=== PATIENT | female | born 1990 | race Caucasian/White ===

== ENCOUNTER 2018-01-25 20:06 | Emergency (ER) | payer MEDICAID ==
[2018-01-25 20:30] VITALS: RESP 18
[2018-01-25] MEDS ORDERED: KETOROLAC 30 MG/ML 1 ML VIAL IVP STA (20:56)
[2018-01-25] MEDS ORDERED: METOCLOPRAMIDE 5 MG/ML 2 ML VIAL IVP STA (20:56)
[2018-01-25] MEDS ORDERED: diphenhydrAMINE 50 MG/ML 1 ML VIAL IVP STA (20:56)
[2018-01-25] MEDS ORDERED: SODIUM CHLORIDE 0.9% 1,000 ML IV STA (20:56)
--- NOTE | 2018-01-25 20:59 | ED ---
Headache HPI - General Chief Complaint: Headache Stated Complaint: Migraine Time Seen by Provider: 01/25/18 20:49 Source: patient, RN notes reviewed Mode of arrival: ambulatory Limitations: no limitations - History of Present Illness Initial Comments: This is a 27-year-old female who presents to the emergency department with chief complaint of migraine. Patient states that she has had migraines for the past 13 years and that it is always located in her temples. Patient states that she developed a right-sided migraine at 9 AM this morning. This is her second migraine this week. She states that her migraine feels different from her normal. She states that it is located behind the eye which is unusual for her. She describes it as sharp and constant. She also states that she feels her vision is blurred. She did not take any medication today but did try peppermint oil. She admits to associated nausea and vomiting. She denies any recent falls, injuries or trauma. Denies fevers or chills, chest pain or shortness breath, abdominal pain, diarrhea or constipation, dysuria or hematuria , dizziness. - Related Data Home Medications Medication Instructions Recorded Confirmed DULoxetine HCL [Cymbalta] 20 mg PO DAILY 01/25/18 01/25/18 QUEtiapine [SEROquel] 50 mg PO HS 01/25/18 01/25/18 SUMAtriptan SUCCINATE [Imitrex] 100 mg PO DAILY PRN 01/25/18 01/25/18 lamoTRIgine [LaMICtal] 75 mg PO HS 01/25/18 01/25/18 Allergies Allergy/AdvReac Type Severity Reaction Status Date / Time frovatriptan [From Frova] Allergy Unknown Verified 01/25/18 20:37 indomethacin [From Indocin] Allergy Rash/Hives Verified 01/25/18 20:37 sulfamethoxazole Allergy Abdominal Verified 01/25/18 20:37 [From Bactrim] Pain trimethoprim [From Bactrim] Allergy Abdominal Verified 01/25/18 20:37 Pain Review of Systems ROS Statement: Those systems with pertinent positive or pertinent negative responses have been documented in the HPI. ROS Other: All systems not noted in ROS Statement are negative. Past Medical History Additional Past Medical History / Comment(s): migraines, pancreatitis, tmj History of Any Multi-Drug Resistant Organisms: None Reported Past Surgical History: Ear Surgery Additional Past Surgical History / Comment(s): tongue surgery Past Psychological History: Anxiety, Depression Smoking Status: Never smoker Past Alcohol Use History: Occasional Past Drug Use History: None Reported General Exam - General Exam Comments Initial Comments: General: Awake and alert, well-developed; in no apparent distress. HEENT: Head atraumatic, normocephalic. Pupils are equal, round and reactive to light. Extraocular movements intact. Oropharynx moist without erythema or exudate. Neck: Supple. Normal ROM. Cardiovascular: Regular rate and rhythm. No murmurs, rubs or gallops. Chest symmetrical. Respiratory: Lungs clear to auscultation bilaterally. No wheezes, rales or rhonchi. Normal respiratory effort with no use of accessory muscles. Musculoskeletal: Normal ROM, no tenderness bilateral upper and lower extremities. Ambulating normally. Skin: [place], warm and dry without rashes or lesions. Neurological: Alert and oriented x3. CN II-XII grossly intact. Speech is fluent and answers are appropriate. No focal neuro deficits. Psychiatric: Normal mood and affect. No overt signs of depression or anxiety noted. Limitations: no limitations Course Vital Signs 01/25/18 01/25/18 20:29 22:50 Temperature 98.5 F 98.6 F Pulse Rate 86 68 Respiratory 18 18 Rate Blood Pressure 123/84 121/79 O2 Sat by Pulse 98 97 Oximetry Medical Decision Making - Medical Decision Making This is a 27-year-old female with history of migraine who presents to the emergency department with chief complaint of migraine. Patient stated that her migraine started this morning. She states that it feels different from her normal migraines as they're usually located in the sikh and this is located behind her eye. Computed tomography scan was obtained and revealed no acute abnormalities. Patient given headache cocktail and fluids while in the emergency department. Symptoms have improved. Vital signs have been stable and she is in no acute distress. She'll be discharged home at this time. Return parameters were discussed. Patient is in agreement with plan and voices understanding. All questions were answered. - Radiology Data Radiology results: report reviewed CT brain without contrast conclusion: Normal head computed tomography scan. No evidence of orbital mass. Disposition Clinical Impression: Migraine Disposition: HOME SELF-CARE Condition: Good Instructions: Migraine Headache (ED) Additional Instructions: Please follow up with primary care provider within 1-2 days. Return to emergency department if symptoms should worsen or any concerns arise. Is patient prescribed a controlled substance at d/c from ED?: No Referrals: Brianna Posada DO [Primary Care Provider] - 1-2 days Time of Disposition: 00:07
--- NOTE | 2018-01-25 21:49 | CT ---
EXAMINATION TYPE: CT brain wo con DATE OF EXAM: 01/25/2018 COMPARISON: NONE HISTORY: Migrane, pressure behind right eye CT DLP: 951.1 mGycm. Automated Exposure Control for Dose Reduction was Utilized. TECHNIQUE: CT scan of the head is performed without contrast. FINDINGS: Ventricles and sulci appear normal. There is no mass effect nor midline shift. There is n o sign of intracranial hemorrhage. The calvarium is intact. CONCLUSION: Normal head CT scan. No evidence of orbital mass.
[2018-01-25] MEDS ORDERED: ORPHENADRINE 30 MG/ML 2 ML VIAL IVP STA (21:55)
[2018-01-25] MEDS ORDERED: methylPREDNISolone SOD SUCCI 125 MG/2 ML VIAL IV STA (21:56)
[2018-01-25] MEDS ORDERED: SUMAtriptan SUCCINATE 6 MG/0.5 ML VIAL SQ STA (22:57)
[2018-01-26 00:20] VITALS: BP 119/79; PULSE 72; TEMP 98.7
== END 2018-01-26 00:20 | disposition home or self-care (01) ==
LOC: EC 20:06
DX: G43.909 Migraine, unspecified, not intractable, without status migrainosus (principal); F32.9 Major depressive disorder, single episode, unspecified; F41.9 Anxiety disorder, unspecified; Z79.899 Other long term (current) drug therapy; Z88.2 Allergy status to sulfonamides; Z88.8 Allergy status to other drugs, medicaments and biological substances
CPT/HCPCS: 70450; 96361; 96372; 96374; 96375; 99284

== ENCOUNTER → 2018-06-01 | Outpatient (CLI) | payer MEDICAID ==
[2018-06-01 10:36] LABS: Cholesterol 223 mg/dL (<200); Glucose 90 mg/dL (74-99); HDL Cholesterol 75 mg/dL (40-60); LDL Cholesterol,Calculated 122 mg/dL (0-99); Triglycerides 132 mg/dL (<150)
== END | disposition home or self-care (01) ==
LOC: LABWHC1 09:29
PROVIDERS: ATTEND Family Medicine
DX: Z00.00 Encounter for general adult medical examination without abnormal findings (principal)
CPT/HCPCS: 36415; 80061; 82947

== ENCOUNTER → 2018-08-21 | Outpatient (CLI) | payer MEDICAID ==
[2018-08-21 18:51] LABS: T4, Free (Free Thyroxine) 1.2 ng/dL (0.80-1.80)
[2018-08-21 19:00] LABS: DHEA Sulfate 215.8 ug/dL (26.0-430.0); Progesterone 12.2 ng/mL
[2018-08-21 19:11] LABS: Thyroid Peroxidase Antibodies 453.4 U/mL (0.0-60.0)
== END | disposition home or self-care (01) ==
LOC: LABWHC1 12:25
PROVIDERS: ATTEND Obstetrics & Gynecology
DX: G47.00 Insomnia, unspecified (principal); G43.909 Migraine, unspecified, not intractable, without status migrainosus; R94.6 Abnormal results of thyroid function studies
CPT/HCPCS: 36415; 82627; 84144; 84403; 84439; 84443; 86376

== ENCOUNTER → 2018-09-18 | Outpatient (CLI) | payer MEDICAID ==
--- NOTE | 2018-09-18 15:31 | US ---
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 Heterogeneous normal-sized thyroid without discrete nodules. IMPRESSION: As above
== END | disposition home or self-care (01) ==
LOC: RADUSWWP 14:46
PROVIDERS: ATTEND Obstetrics & Gynecology
DX: E06.3 Autoimmune thyroiditis (principal)
CPT/HCPCS: 76536

== ENCOUNTER → 2018-10-20 | Outpatient (CLI) | payer MEDICAID ==
[2018-10-21 12:04] LABS: T4, Free (Free Thyroxine) 1.2 ng/dL (0.80-1.80)
== END ==
LOC: LABMAIN 12:59
PROVIDERS: ATTEND Obstetrics & Gynecology
DX: E06.3 Autoimmune thyroiditis (principal)
CPT/HCPCS: 36415; 84439; 84443; 86376

== ENCOUNTER → 2018-11-27 | Outpatient (CLI) | payer MEDICAID ==
--- NOTE | 2018-11-27 15:39 | CT ---
EXAMINATION TYPE: CT abdomen pelvis wo con DATE OF EXAM: 11/27/2018 COMPARISON: None INDICATION: Mid Abdominal pain DLP: 451.9 mGycm, Automated exposure control for dose reduction was used. CONTRAST: No intravenous contrast. Study performed without Oral Contrast TECHNIQUE: Axial images were obtained from above the diaphragm to the pubic rami in the axial plane a t 5 mm thick sections. Reconstructed images are reviewed on the computer in the coronal plane. FINDINGS: Limited CT sections are obtained the lung bases. The lung bases are clear. CT ABDOMEN: Liver: Normal Spleen: Normal Pancreas: Normal Adrenal glands: The adrenal glands are normal. Gallbladder: Decompressed Kidneys: No masses are evident. No hydronephrosis is present. No cysts are present. Delayed images were obtained through the kidneys, which remain unremarkable. Aorta: Vascular calcification is within the aorta. Inferior vena cava: Normal. CT PELVIS: Loops of bowel within the abdomen and pelvis are normal. There are loops of bowel which are incom pletely distended or lack oral contrast limiting their evaluation. Appendix: Normal as visualized. Urinary bladder: Normal. Genitourinary structures: Uterus appears normal. There is an IUD within the uterus. Adnexal regions a re clear. Osseous structures: No suspicious lytic or sclerotic lesions. Scoliosis through the lumbar spine. IMPRESSIONS: 1. No suspicious abnormality by CT exam
== END | disposition home or self-care (01) ==
LOC: RADCTMAIN 13:37
PROVIDERS: ATTEND Family Medicine
DX: R10.9 Unspecified abdominal pain (principal)
CPT/HCPCS: 74176

== ENCOUNTER → 2019-02-05 | Outpatient (CLI) | payer MEDICAID ==
--- NOTE | 2019-02-05 11:37 | P.STRESS ---
- Stress Test Note Stress Test Results/Findings: Exam Performed: stress test Exam Date: 02/05/19 Reason for Exam: PALPITATIONS Height: 5 ft 2 in Weight: 68.039 kg Protocol: JINNY Stage: III Duration of Exercise: 6:32 Resting Heart Rate: 97 Resting Blood Pressure: 114/93 Maximum Achieved Heart Rate: 174 Maximum Achieved Blood Pressure: 164/94 85% PMHR: 162 100% PMHR: 190 METS: 7.9 Technologist Comment: Stress Test Results/Findings: History of palpitations Baseline 197 bpm, Baseline blood pressure 140/93 mmHg Patient will ECG shows normal sinus rhythm normal cardiac intervals Patient exercised on a Jinny protocol for 6-1/2 minutes. She completed a palpitations and tiredness and fatigue at peak exercise Normal blood pressure response to excise No ECG evidence of ischemia No arrhythmias noted Impression Average exercise capacity No evidence for ischemia, no evidence for arrhythmias Brisk heart rate response during early exercise, likely deconditioning
--- NOTE | 2019-02-06 09:21 | ECHOF ---
Referral Reason:R00.2 Palpitations MEASUREMENTS -------- HEIGHT: 157.5 cm WEIGHT: 68.0 kg BP: IVSd: 0.7 cm (0.6 - 1.1) LVIDd: 4.4 cm (3.9 - 5.3) LVPWd: 0.8 cm (0.6 - 1.1) IVSs: 1.2 cm LVIDs: 2.7 cm LVPWs: 1.8 cm Ao Diam: 2.5 cm (2.0 - 3.7) AV Cusp: 1.8 cm (1.5 - 2.6) LA Diam: 2.1 cm (2.7 - 3.8) EPSS: 1.0 cm MV E Lebron: 0.69 m/s MV DecT: 171 ms MV A Lebron: 0.80 m/s MV E/A Ratio: 0.86 RAP: 5.00 mmHg RVSP: 20.84 mmHg MV EF SLOPE: 146.20 mm/s (70 - 150) MV EXCURSION: 1.51 cm (> 18.000) FINDINGS -------- Sinus rhythm. This was a technically good study. The left ventricular size is normal. Left ventricular wall thickness is normal. Overall left vent ricular systolic function is normal with, an EF between 55 - 60 %. The right ventricle is normal in size. The left atrial size is normal. The right atrial size is normal. Interatrial and interventricular septum intact. The aortic valve is trileaflet and appears structurally normal. Mild mitral regurgitation is present. Trace tricuspid regurgitation present. The right ventricular systolic pressure, as measured by Dopp ler, is 20.84mmHg. There is no pulmonic regurgitation present. The aortic root size is normal. IVC Not well visulized. There is no pericardial effusion. CONCLUSIONS -------- 1. Sinus rhythm. 2. This was a technically good study. 3. The left ventricular size is normal. 4. Left ventricular wall thickness is normal. 5. Overall left ventricular systolic function is normal with, an EF between 55 - 60 %. 6. The right ventricle is normal in size. 7. The left atrial size is normal. 8. The right atrial size is normal. 9. Interatrial and interventricular septum intact. 10. The aortic valve is trileaflet and appears structurally normal. 11. Mild mitral regurgitation is present. 12. Trace tricuspid regurgitation present. 13. The right ventricular systolic pressure, as measured by Doppler, is 20.84mmHg. 14. There is no pulmonic regurgitation present. 15. The aortic root size is normal. 16. IVC Not well visulized. 17. There is no pericardial effusion. [employer] DRIVER/MECHANIC: Ilsa Maldonado RDCS
== END | disposition home or self-care (01) ==
LOC: RADNMMAIN 10:34
PROVIDERS: ATTEND Internal Medicine Clinical Cardiac Electrophysiology
DX: R00.2 Palpitations (principal)
CPT/HCPCS: 93017; 93225; 93226; 93306

== ENCOUNTER → 2019-02-13 | Outpatient (CLI) | payer MEDICAID ==
[2019-02-13 23:22] LABS: T4, Free (Free Thyroxine) 0.9 ng/dL (0.80-1.80)
== END ==
LOC: LABWHC1 17:03
PROVIDERS: ATTEND Obstetrics & Gynecology
DX: E06.3 Autoimmune thyroiditis (principal); E03.9 Hypothyroidism, unspecified
CPT/HCPCS: 36415; 84439; 84443; 86376

== ENCOUNTER → 2019-06-21 | Outpatient (CLI) | payer MEDICAID ==
[2019-06-21 11:59] LABS: Basophils # (A) 0.1 k/uL (0-0.2); Basophils % (A) 1 %; Eosinophils # (A) 0.1 k/uL (0-0.7); Eosinophils % (A) 1 %; HCT 45.2 % (34.0-46.0); HGB 15.4 gm/dL (11.4-16.0); Lymphocytes # (A) 2.1 k/uL (1.0-4.8); Lymphocytes % (A) 27 %; MCH 32.9 pg (25.0-35.0); MCHC 34.1 g/dL (31.0-37.0); MCV 96.5 fL (80.0-100.0); Mean Platelet Volume 7.3; Monocytes # (A) 0.5 k/uL (0-1.0); Monocytes % (A) 6 %; Neutrophils # (A) 4.9 k/uL (1.3-7.7); Neutrophils % (A) 63 %; Platelet Count 319 k/uL (150-450); RBC 4.68 m/uL (3.80-5.40); RDW 12.9 % (11.5-15.5); WBC 7.7 k/uL (3.8-10.6)
[2019-06-21 13:15] LABS: Erythrocyte Sedimentation Rate 2 mm/hr (0-20)
[2019-06-21 16:15] LABS: African American GFR (CKD) 99.4 (60.0-200.0); Albumin 4.5 g/dL (3.80-4.90); Albumin/Globulin Ratio 2.14 (1.60-3.17); Anion Gap 8.3 mmol/L (4.00-12.00); BUN/Creat Ratio 8.89 Ratio (12.00-20.00); Calcium 9.8 mg/dL (8.7-10.3); Carbon Dioxide 24.7 mmol/L (21.6-31.8); Chol/HDL Ratio 2.69; Globulin 2.1 g/dL (1.6-3.3); Potassium 4.3 mmol/L (3.5-5.5); Total Bilirubin 0.8 mg/dL (0.3-1.2); Total Protein 6.6 g/dL (6.2-8.2)
== END | disposition home or self-care (01) ==
LOC: LABWHC1 11:20
PROVIDERS: ATTEND Nurse Practitioner Family
DX: E03.9 Hypothyroidism, unspecified (principal); E87.8 Other disorders of electrolyte and fluid balance, not elsewhere classified; R79.9 Abnormal finding of blood chemistry, unspecified; Z13.220 Encounter for screening for lipoid disorders; Z13.9 Encounter for screening, unspecified; Z13.228 Encounter for screening for other metabolic disorders
CPT/HCPCS: 36415; 80053; 80061; 84443; 85025; 85652

== ENCOUNTER → 2019-08-11 | Outpatient (CLI) | payer MEDICAID ==
[2019-08-12 02:25] LABS: T4, Free (Free Thyroxine) 0.9 ng/dL (0.80-1.80)
== END | disposition home or self-care (01) ==
LOC: LABWHC1 17:24
PROVIDERS: ATTEND Obstetrics & Gynecology
DX: E06.3 Autoimmune thyroiditis (principal)
CPT/HCPCS: 36415; 84439; 84443; 86376

== ENCOUNTER → 2020-05-04 | Outpatient (CLI) | payer MEDICAID ==
--- NOTE | 2020-05-04 11:26 | CT ---
EXAMINATION TYPE: CT iac w con DATE OF EXAM: 05/04/2020 COMPARISON: CT brain 01/25/2018 HISTORY: Right sided ear tenderness with mild hearing loss CT DLP: 150 mGycm Automated exposure control for dose reduction was used. CONTRAST: Performed with IV Contrast, patient injected with 100 mL of Isovue 300. TECHNIQUE: Axial images 1 mm thick sections through the petrous ridges. Reconstructed images in the c oronal plane are performed. FINDINGS: Paranasal sinuses and mastoid air cells are clear. Very minimal fluid may be within some peripheral l eft mastoid air cells. No septal destruction is evident. Internal auditory canals appear symmetrical without expansion or erosion. Semicircular canals are nor mal. Cochlea are normal. Incus and malleus have normal orientation. Middle ears are clear. External a uditory canals are clear. No suspicious enhancement is evident within the internal auditory canals or cerebellar pontine angles . Note is made of some right septal deviation. Ostiomeatal units are patent. Orbits as visualized are u nremarkable. Temporomandibular junctions appear normal. Scutum are normal. IMPRESSION: 1. VERY MINIMAL FLUID-FILLED LATERAL LEFT MASTOID AIR CELLS. MASTOID AIR CELLS ARE OTHERWISE CLEAR. 2. NO SUSPICIOUS ABNORMALITY RIGHT EAR
== END | disposition home or self-care (01) ==
LOC: RADCTMAIN 09:37
PROVIDERS: ATTEND Nurse Practitioner Family
DX: H74.8X2 Other specified disorders of left middle ear and mastoid (principal)
CPT/HCPCS: 70481; Q9967

== ENCOUNTER → 2020-07-23 | Outpatient (CLI) | payer MEDICAID | END | disposition home or self-care (01) | LOC: LABWHC1 13:08 | PROVIDERS: ATTEND Pediatrics Pediatric Infectious Diseases | DX: Z03.818 Encounter for observation for suspected exposure to other biological agents ruled out (principal) | CPT/HCPCS: U0003; C9803 ==

== ENCOUNTER → 2020-07-29 | Outpatient (CLI) | payer MEDICAID | END | disposition home or self-care (01) | LOC: LABWHC1 15:03 | PROVIDERS: ATTEND Pediatrics Pediatric Infectious Diseases | DX: Z03.818 Encounter for observation for suspected exposure to other biological agents ruled out (principal) | CPT/HCPCS: U0003; C9803 ==

== ENCOUNTER → 2021-09-10 | Outpatient (CLI) | payer BC ==
[2021-09-10 18:27] LABS: T4, Free (Free Thyroxine) 1.08 ng/dL (0.800-1.800)
== END | disposition home or self-care (01) ==
LOC: LABWHC1 10:50
PROVIDERS: ATTEND Obstetrics & Gynecology
DX: E03.9 Hypothyroidism, unspecified (principal)
CPT/HCPCS: 36415; 84439; 84443; 84481

== ENCOUNTER → 2022-12-13 | Outpatient (CLI) | payer BC | END | disposition home or self-care (01) | LOC: LABWHC1 14:10 | PROVIDERS: ATTEND Obstetrics & Gynecology | DX: E03.9 Hypothyroidism, unspecified (principal) | CPT/HCPCS: 36415; 84481 ==

== ENCOUNTER → 2023-12-12 | Outpatient (CLI) | payer BC ==
[2023-12-12 17:18] LABS: Estradiol 62.8 pg/mL; Follicle Stimulating Hormone 6.1 mIU/mL; T4, Free (Free Thyroxine) 1.02 ng/dL (0.80-1.80); Thyroid Peroxidase Antibodies 52.3 U/mL (0.0-33.0)
[2023-12-12 17:19] LABS: Progesterone 4.7 ng/mL
[2023-12-12 17:21] LABS: Testosterone <10.00 ng/dL (9.01-47.94)
== END | disposition home or self-care (01) ==
LOC: LABWHC1 12:08
PROVIDERS: ATTEND Obstetrics & Gynecology
DX: E03.9 Hypothyroidism, unspecified (principal); N95.9 Unspecified menopausal and perimenopausal disorder; R53.83 Other fatigue
CPT/HCPCS: 36415; 82670; 83001; 84144; 84403; 84439; 84443; 84481; 86376

== ENCOUNTER → 2024-03-12 | Outpatient (CLI) | payer BC ==
--- NOTE | 2024-03-12 14:24 | MM ---
Reason for Exam: Clinical finding. Baseline mammogram. Indicated Problems: Other indicated problem of both sides for 1 Year(s). Patient History: Menarche at age 10. Patient has no children. Currently using Hormonal Contraceptives, for 16 years. Maternal aunt had breast cancer under age 50. Last menstrual period: 03/10/2024 Risk Values: Arelis 5 year model risk: 0.3%. NCI Lifetime model risk: 11.3%. Prior Study Comparison: Patient's first Mammogram. Tissue Density: The breasts are heterogeneously dense, which may obscure small masses. Findings: Analyzed By CAD. No masses or distortion. No suspicious calcifications. Breast ultrasound is recommended as requested by the ordering physician. Overall Assessment: Incomplete: need additional imaging evaluation, BI-RAD 0 Management: Diagnostic Breast Ultrasound of both breasts. . Results were given to the patient verbally at the time of exam. Patient should continue monthly self-breast exams. A clinical breast exam by your physician is recommended on an annual basis. This exam should not preclude additional follow-up of suspicious palpable abnormalities. Note on Arelis scores and lifetime risk: 1. A Arelis score greater than 3% is considered moderate risk. If this is the case, consider specialist referral to assess eligibility for a risk reducing agent. 2. If overall lifetime risk for the development of breast cancer is 20% or higher, the patient may qualify for future screening with alternating mammogram and breast MRI. Electronically signed and approved by: David Montiel M.D. Radiologis
--- NOTE | 2024-03-12 14:42 | USB ---
Reason for Exam: Clinical finding. Patient History: Menarche at age 10. Patient has no children. Currently using Hormonal Contraceptives, for 16 years. Maternal aunt had breast cancer under age 50. Risk Values: Arelis 5 year model risk: 0.3%. NCI Lifetime model risk: 11.3%. Technique: Method: Whole Breast Handheld. Findings: The whole breast of both breasts, the axilla of both breasts and the retroareolar of both breasts were scanned. No solid or cystic masses are identified.. Overall Assessment: Negative, BI-RAD 1 Management: Screening Mammogram of both breasts at age 38. A clinical breast exam by your physician is recommended on an annual basis and results should be correlated with mammographic findings. This exam should not preclude additional follow-up of suspicious palpable abnormalities. Results were given to the patient verbally at the time of exam. Electronically signed and approved by: David Montiel M.D. Radiologis
== END | disposition home or self-care (01) ==
LOC: RADMAMWWP 13:45
PROVIDERS: ATTEND Student in an Organized Health Care Education/Training Program
DX: R92.333 Mammographic heterogeneous density, bilateral breasts (principal); Z80.3 Family history of malignant neoplasm of breast
CPT/HCPCS: 77062; 77066

== ENCOUNTER → 2024-03-19 | Outpatient (CLI) | payer BC ==
--- NOTE | 2024-03-19 21:54 | US ---
EXAMINATION TYPE: US kidneys/renal and bladder DATE OF EXAM: 03/19/2024 COMPARISON: CT abdomen and pelvis 11/27/2018 CLINICAL INDICATION: Female, 33 years old with history of R39.15 URGENCY OF URINATION; Urgency of [place] EXAM MEASUREMENTS: Right Kidney: 10.1 x 3.6 x 4.7 cm Left Kidney: 8.8 x 4.4 x 3.9 cm Right Kidney: No hydronephrosis or masses seen Left Kidney: No evidence of hydro, possible small in size, however difficult to visualize due to over lying bowel gas Bladder: wnl Bilateral Jets seen: Yes There is no evidence for hydronephrosis at this point in time. No nephrolithiasis is seen. Cortical medullary differentiation is maintained. Limited evaluation of the lower pole of the left kidney due to overlying bowel gas. No masses are identified. The urinary bladder is anechoic without filling d efect identified. Bilateral ureteral jets are seen. IMPRESSION: No hydronephrosis or nephrolithiasis.
== END | disposition home or self-care (01) ==
LOC: RADUSWWP 12:19
PROVIDERS: ATTEND Student in an Organized Health Care Education/Training Program
DX: R39.15 Urgency of urination (principal); R22.2 Localized swelling, mass and lump, trunk
CPT/HCPCS: 76770

== ENCOUNTER 2024-03-25 15:15 | Emergency (ER) | payer BC ==
[2024-03-25 15:19] VITALS: RESP 18
--- NOTE | 2024-03-25 16:09 | ED ---
ENT HPI - General Chief complaint: ENT Stated complaint: Neck/Ear Pain R side Time Seen by Provider: 03/25/24 15:35 Source: patient, RN notes reviewed Mode of arrival: ambulatory Limitations: no limitations - History of Present Illness Initial comments: 33-year-old female presenting with posterior headache and neck pain x 3 days. Describes a 10 out of 10 sharp pain on the right side of the back of her head that radiates down her neck and into her right arm. She has a history of migraines but reports this feels different. Denies otalgia, fever, nausea, vomiting, chest pain. She has no medical conditions other than migraines. Denies blood thinners. Denies head trauma. She was given steroids and tramadol from urgent care. - Related Data Home Medications Medication Instructions Recorded Confirmed DULoxetine HCL [Cymbalta] 20 mg PO DAILY 01/25/18 01/25/18 QUEtiapine [SEROquel] 50 mg PO HS 01/25/18 01/25/18 SUMAtriptan succinate [Imitrex] 100 mg PO DAILY PRN 01/25/18 01/25/18 lamoTRIgine [LaMICtal] 75 mg PO HS 01/25/18 01/25/18 Allergies Allergy/AdvReac Type Severity Reaction Status Date / Time frovatriptan [From Frova] Allergy Unknown Verified 03/25/24 15:18 indomethacin [From Indocin] Allergy Rash/Hives Verified 03/25/24 15:18 sulfamethoxazole Allergy Abdominal Verified 03/25/24 15:18 [From Bactrim] Pain trimethoprim [From Bactrim] Allergy Abdominal Verified 03/25/24 15:18 Pain Review of Systems ROS Statement: Those systems with pertinent positive or pertinent negative responses have been documented in the HPI. ROS Other: All systems not noted in ROS Statement are negative. Past Medical History Additional Past Medical History / Comment(s): migraines, pancreatitis, tmj History of Any Multi-Drug Resistant Organisms: None Reported Past Surgical History: Ear Surgery Additional Past Surgical History / Comment(s): tongue surgery Past Psychological History: Anxiety, Depression Smoking Status: Never smoker Past Alcohol Use History: Occasional Past Drug Use History: Marijuana General Exam Limitations: no limitations General appearance: alert, in no apparent distress Head exam: Present: atraumatic, normocephalic, normal inspection Eye exam: Present: normal appearance, PERRL, EOMI. Absent: scleral icterus, conjunctival injection, periorbital swelling ENT exam: Present: normal exam, mucous membranes moist, TM's normal bilaterally, other (No erythema or tenderness over mastoids bilaterally) Neck exam: Present: normal inspection, full ROM, other (Negative Kernig's and Brudzinski's signs). Absent: tenderness, meningismus, lymphadenopathy Respiratory exam: Present: normal lung sounds bilaterally. Absent: respiratory distress, wheezes, rales, rhonchi, stridor Cardiovascular Exam: Present: regular rate, normal rhythm, normal heart sounds. Absent: systolic murmur, diastolic murmur, rubs, gallop, clicks Extremities exam: Present: normal inspection, full ROM, normal capillary refill. Absent: tenderness, pedal edema, joint swelling, calf tenderness Neurological exam: Present: alert, oriented X3, CN II-XII intact Psychiatric exam: Present: normal affect, normal mood Skin exam: Present: warm, dry, intact, normal color. Absent: rash Course Vital Signs 03/25/24 03/25/24 03/25/24 15:16 17:50 18:55 Temperature 98.1 F 98 F 98 F Pulse Rate 67 67 70 Respiratory 18 18 18 Rate Blood Pressure 145/109 125/89 122/89 O2 Sat by Pulse 99 98 99 Oximetry Medical Decision Making - Medical Decision Making Was pt. sent in by a medical professional or institution (SAIRA Bowman, MORTGAGE PROCESSING CLERK, urgent care, hospital, or residential...) When possible be specific @ -No Did you speak to anyone other than the patient for history (EMS, parent, family, police, friend...)? What history was obtained from this source @ -No Did you review nursing and triage notes (agree or disagree)? Why? @ -I reviewed and agree with nursing and triage notes Were old charts reviewed (outside hosp., previous admission, EMS record, old EKG, old radiological studies, urgent care reports/EKG's, residential records)? Report findings @ -No old charts were reviewed Differential Diagnosis (chest pain, altered mental status, abdominal pain women, abdominal pain men, vaginal bleeding, weakness, fever, dyspnea, syncope, headache, dizziness, GI bleed, back pain, seizure, CVA, palpatations, mental health, musculoskeletal)? @ -Differential Headache: Migraine, tension, cluster, carbon monoxide, central venous thrombosis, pension karma temporal arteritis, acute closure glaucoma, intercranial hemorrhage, mastoiditis, sinusitis, head injury, this is not meant to be an all-inclusive list. EKG interpreted by me (3pts min.). @ -None X-rays interpreted by me (1pt min.). @ -None done CT interpreted by me (1pt min.). @ -CT of brain reveals no acute process. CT angio of head and neck reveals no finding to correlate patient's right neck pain, there is no evidence of dissection of cervical internal carotid arteries or vertebral arteries or any evidence of stenosis, no evidence of intracranial high-grade stenosis U/S interpreted by me (1pt. min.). @ -None done What testing was considered but not performed or refused? (CT, X-rays, U/S, la bs)? Why? @ -None What meds were considered but not given or refused? Why? @ -None Did you discuss the management of the patient with other professionals (professionals i.e. , PA, MORTGAGE PROCESSING CLERK, lab, RT, psych nurse, social media sr strategy manager, tester waste disposal leakage, teacher, reserve officer, case aide)? Give summary @ -No Was smoking cessation discussed for >3mins.? @ -No Was critical care preformed (if so, how long)? @ -No Were there social determinants of health that impacted care today? How? (Homelessness, low income, unemployed, alcoholism, drug addiction, transportation, low edu. Level, literacy, decrease access to med. care, custodial, rehab)? @ -No Was there de-escalation of care discussed even if they declined (Discuss DNR or withdrawal of care, Hospice)? DNR status @ -No What co-morbidities impacted this encounter? (DM, HTN, Smoking, COPD, CAD, Cancer, CVA, ARF, Chemo, Hep., AIDS, mental health diagnosis, sleep apnea, morbid obesity)? @ -None Was patient admitted / discharged? Hospital course, mention meds given and route, prescriptions, significant lab abnormalities, going to OR and other pertinent info. @ -Patient was discharged. Patient was seen and evaluated for right-sided neck pain x 3 days. Vitals are stable, there are no alarm symptoms present. Patient is neurovascularly intact. Physical examination is remarkable for mild right- sided paraspinal cervical tenderness. No sign of mastoiditis or otitis media. Patient was given IV Norflex. Lab work remarkable for white blood cell count of 15, likely due to steroid use as patient has been taking steroids for 1 week status post root canal last week. She was also prescribed steroids at urgent care yesterday. CT brain revealed no acute process. CT angio of head and neck revealed no evidence of dissection, stenosis, or aneurysm. Discussed with patient there is no sign of emergent etiology causing symptoms today. At this time I suspect symptoms are due to cervical muscle strain. Patient is given IV Toradol at this time for pain. Work note provided. Strict return/alarm symptoms discussed with patient in detail and she shows understanding agrees with plan. Advised to follow-up with PCP for reevaluation. Case discussed with Dr. Doyle. Patient discharged in stable condition. Undiagnosed new problem with uncertain prognosis? @ -No Drug Therapy requiring intensive monitoring for toxicity (Heparin, Nitro, Insulin, Cardizem)? @ -No Were any procedures done? @ -No Diagnosis/symptom? @ -Cervical strain Acute, or Chronic, or Acute on Chronic? @ -Acute Uncomplicated (without systemic symptoms) or Complicated (systemic symptoms)? @ -Uncomplicated Side effects of treatment? @ -No Exacerbation, Progression, or Severe Exacerbation? @ -No Poses a threat to life or bodily function? How? (Chest pain, USA, VT, pneumonia, PE, COPD, DKA, ARF, appy, cholecystitis, CVA, Diverticulitis, Homicidal, Suicidal, threat to staff... and all critical care pts) @ -No - Lab Data Result diagrams: 03/25/24 16:24 03/25/24 16:24 Lab Results 03/25/24 03/25/24 Range/Units 16:24 16:24 WBC 15.1 H (3.8-10.6) k/uL RBC 4.74 (3.80-5.40) m/uL Hgb 15.0 (11.4-16.0) gm/dL Hct 47.8 H (34.0-46.0) % MCV 100.9 H (80.0-100.0) fL MCH 31.6 (25.0-35.0) pg MCHC 31.3 (31.0-37.0) g/dL RDW 13.0 (11.5-15.5) % Plt Count 315 (150-450) k/uL MPV 8.5 Neutrophils % 75 % Lymphocytes % 17 % Monocytes % 5 % Eosinophils % 1 % Basophils % 1 % Neutrophils # 11.3 H (1.3-7.7) k/uL Lymphocytes # 2.6 (1.0-4.8) k/uL Monocytes # 0.8 (0-1.0) k/uL Eosinophils # 0.1 (0-0.7) k/uL Basophils # 0.1 (0-0.2) k/uL Sodium 134 L (137-145) mmol/L Potassium 4.3 (3.5-5.1) mmol/L Chloride 104 (98-107) mmol/L Carbon Dioxide 27 (22-30) mmol/L Anion Gap 3 mmol/L BUN 14 (7-17) mg/dL Creatinine 0.73 (0.52-1.04) mg/dL Est GFR (CKD-EPI)AfAm >90 (>60 ml/min/1.73 sqM) Est GFR (CKD-EPI)NonAf >90 (>60 ml/min/1.73 sqM) Glucose 95 (74-99) mg/dL Calcium 9.5 (8.4-10.2) mg/dL Total Bilirubin 0.5 (0.2-1.3) mg/dL AST 19 (14-36) U/L ALT 16 (4-34) U/L Alkaline Phosphatase 64 (38-126) U/L C-Reactive Protein <0.5 (<1.0) mg/dL Total Protein 6.8 (6.3-8.2) g/dL Albumin 4.3 (3.5-5.0) g/dL Disposition Clinical Impression: Cervical strain, acute Disposition: HOME SELF-CARE Condition: Stable Instructions (If sedation given, give patient instructions): Cervical Strain (ED), Acute Neck Pain (ED) Additional Instructions: Please return to the Emergency Department if symptoms worsen or any other concerns. Is patient prescribed a controlled substance at d/c from ED?: No Referrals: Jailene Tejada DO [Primary Care Provider] - 1-2 days Time of Disposition: 19:22
[2024-03-25 16:33] LABS: Basophils # (A) 0.1 k/uL (0-0.2); Basophils % (A) 1 %; Eosinophils # (A) 0.1 k/uL (0-0.7); Eosinophils % (A) 1 %; HCT 47.8 % (34.0-46.0); Lymphocytes # (A) 2.6 k/uL (1.0-4.8); Lymphocytes % (A) 17 %; MCH 31.6 pg (25.0-35.0); MCHC 31.3 g/dL (31.0-37.0); MCV 100.9 fL (80.0-100.0); Mean Platelet Volume 8.5; Monocytes # (A) 0.8 k/uL (0-1.0); Monocytes % (A) 5 %; Neutrophils # (A) 11.3 k/uL (1.3-7.7); Neutrophils % (A) 75 %; Platelet Count 315 k/uL (150-450); RBC 4.74 m/uL (3.80-5.40); WBC 15.1 k/uL (3.8-10.6)
[2024-03-25] MEDS: ORPHENADRINE 30 MG/ML 2 ML VIAL IVP STA (16:36)
[2024-03-25 17:10] LABS: ALT 16 U/L (4-34); AST 19 U/L (14-36); African American GFR (CKD) >90 (>60 ml/min/1.73 sqM); Albumin 4.3 g/dL (3.5-5.0); Anion Gap 3 mmol/L; Blood Urea Nitrogen 14 mg/dL (7-17); Calcium 9.5 mg/dL (8.4-10.2); Carbon Dioxide 27 mmol/L (22-30); Chloride 104 mmol/L (98-107); Glucose 95 mg/dL (74-99); Non-African American GFR(CKD) >90 (>60 ml/min/1.73 sqM); Potassium 4.3 mmol/L (3.5-5.1); Sodium 134 mmol/L (137-145); Total Bilirubin 0.5 mg/dL (0.2-1.3); Total Protein 6.8 g/dL (6.3-8.2)
[2024-03-25 17:11] LABS: Alkaline Phosphatase 64 U/L (38-126); C Reactive Protein <0.5 mg/dL (<1.0)
--- NOTE | 2024-03-25 17:21 | CT ---
EXAMINATION TYPE: CT brain wo con CT DLP: 1119.6 mGycm, Automated exposure control for dose reduction was used. DATE OF EXAM: 03/25/2024 5:07 PM COMPARISON: 03/25/2024. CLINICAL INDICATION:Female, 33 years old with history of headache, acute, normal neuro exam, c/o pain behind ear TECHNIQUE: Brain: Axial CT images of the brain were obtained with coronal and sagittal reformats created and rev iewed. Contrast used: None. Oral contrast used: None. FINDINGS: Brain: Extra-axial spaces: No abnormal extra-axial fluid collections. Ventricular system: Within normal limits Cerebral parenchyma: No acute intraparenchymal hemorrhage or mass effect. The hutchinson-white junction is well differentiated. Cerebellum: Unremarkable. Mass effect: No evidence of midline shift. Intracranial vasculature: unremarkable Soft tissues: Normal. Calvarium/osseous structures: No depressed skull fracture. Paranasal sinuses and mastoid air cells: Mild scattered paranasal sinus disease. Visualized orbits: Orbital contents are intact. IMPRESSION: No acute intracranial process.
[2024-03-25 17:53] VITALS: TEMP 98
--- NOTE | 2024-03-25 18:29 | CT ---
EXAMINATION TYPE: CT angio head neck CT DLP: 465.5 mGycm, Automated exposure control for dose reduction was used. DATE OF EXAM: 03/25/2024 5:23 PM COMPARISON: CT brain 03/25/2024.. CLINICAL INDICATION:Female, 33 years old with history of headache/neck pain; PHH, right ear pain, rig ht sided neck pain TECHNIQUE: Axially acquired helical CT angiogram of the head and neck was obtained with contrast. Axi al images are supplemented with 3D reconstructions and MIP images which were post-processed at an in dependent workstation. NASCET criteria used. Contrast used:65 mL of Isovue 370 with IV Contrast, Oral contrast used: None. FINDINGS: CTA HEAD: No evidence of acute intracranial hemorrhage, mass effect, or midline shift. The ventricles, sulci, a nd cisterns are unremarkable. The visualized portions of the internal carotid arteries, middle cerebral arteries, anterior cerebral arteries, and posterior cerebral arteries are patent. The basilar and vertebral arteries are patent. CTA NECK: Right Carotid System: The common carotid artery and external carotid artery are patent. The carotid bifurcation demonstrate s no evidence of hemodynamically significant stenosis. The remaining portions of the internal carotid artery demonstrate normal size without significant narrowing. Left Carotid System: The common carotid artery and external carotid artery are patent. The carotid bifurcation demonstrate s no evidence of hemodynamically significant stenosis. The remaining portions of the internal carotid artery demonstrate normal size without significant narrowing. Vertebral arteries are patent without evidence hemodynamically significant stenosis. There is a three-vessel aortic arch. The origins of the great vessels are patent. No evidence of hemo dynamically significant stenosis. No finding to correlate patient's right neck pain. No organizing focal collection mass. IMPRESSION: 1. No finding to correlate patient's right neck pain. 2. No evidence of dissection of the cervical internal carotid arteries or vertebral arteries or any evidence of significant stenosis at the carotid bifurcations. 3. No evidence of intracranial high-grade stenosis or intracranial aneurysm.
[2024-03-25 19:14] VITALS: BP 122/89; PULSE 70
[2024-03-25] MEDS: KETOROLAC 15 MG/ML 1 ML VIAL IVP STA (19:15)
== END 2024-03-25 19:32 | disposition home or self-care (01) ==
LOC: EC 15:15
DX: S16.1XXA Strain of muscle, fascia and tendon at neck level, initial encounter (principal); F12.90 Cannabis use, unspecified, uncomplicated; Z88.8 Allergy status to other drugs, medicaments and biological substances; Z88.2 Allergy status to sulfonamides; Z88.1 Allergy status to other antibiotic agents; X58.XXXA Exposure to other specified factors, initial encounter
CPT/HCPCS: 36415; 80053; 85025; 86140; 70496; 70450; 70498; 99284; 96374; 96375; J2360; J1885; Q9967

== ENCOUNTER → 2024-04-09 | Outpatient (CLI) | payer BC ==
[2024-04-10 02:47] LABS: Basophils # (A) 0.04 X 10*3/uL (0.00-0.10); Basophils % (A) 0.4 %; Eosinophils # (A) 0.06 X 10*3/uL (0.04-0.35); Eosinophils % (A) 0.6 %; HCT 42.6 % (37.2-46.3); Lymphocytes # (A) 2.74 X 10*3/uL (0.90-5.00); MCH 32.6 pg (27.0-32.0); MCHC 32.9 g/dL (32.0-37.0); MCV 99.3 FL (80.0-97.0); Mean Platelet Volume 11.2 FL (9.5-12.2); Monocytes # (A) 0.76 X 10*3/uL (0.20-1.00); NRBC Per 100 WBC 0 X 10*3/uL (0.00-0.01); Neutrophils # (A) 5.81 X 10*3/uL (1.80-7.70); Neutrophils % (A) 61.6 %; Platelet Count 267 X 10*3/uL (140-440); RBC 4.29 X 10*6/uL (4.10-5.20); RDW 14.3 % (11.5-14.5); WBC 9.45 X 10*3/uL (4.50-10.00)
[2024-04-10 03:23] LABS: Appearance,Urine Clear (Clear); Bilirubin,Urine Negative (Negative); Blood,Urine Negative (Negative); Color,Urine Yellow (Yellow); Ketones,Urine Negative (Negative); Nitrite,Urine Negative (Negative); Urobilinogen,Urine 0.2 E.U./DL
[2024-04-10 03:38] LABS: % Iron Saturation 30.83 (12.00-45.00); Iron 111 UG/DL (50-170); Total Iron Binding Capacity 360 UG/DL (228-460)
[2024-04-10 03:52] LABS: ALT 18 U/L (8-44); AST 18 U/L (13-35); Alkaline Phosphatase 58 U/L (41-126); Calcium 9.3 mg/dL (8.7-10.3); Carbon Dioxide 22.7 mmol/L (21.6-31.8); Chloride 104 mmol/L (96-109); Globulin 2.1 g/dL (1.6-3.3); Glucose 90 mg/dL (70-110); Potassium 4.1 mmol/L (3.5-5.5); Sodium 137 mmol/L (135-145); Total Bilirubin 0.3 mg/dL (0.3-1.2); Total Protein 6.1 g/dL (6.2-8.2)
== END | disposition home or self-care (01) ==
LOC: LABWHC1 15:54
PROVIDERS: ATTEND Student in an Organized Health Care Education/Training Program
DX: D75.89 Other specified diseases of blood and blood-forming organs (principal); E87.1 Hypo-osmolality and hyponatremia; R82.71 Bacteriuria
CPT/HCPCS: 36415; 80053; 81003; 83540; 83550; 85025; 87086

== ENCOUNTER → 2024-10-14 | Outpatient (CLI) | payer BC ==
[2024-10-14 15:30] LABS: Basophils # (A) 0.03 X 10*3/uL (0.00-0.10); Basophils % (A) 0.6 %; Eosinophils # (A) 0.05 X 10*3/uL (0.04-0.35); Eosinophils % (A) 1.1 %; HCT 43.5 % (37.2-46.3); Lymphocytes # (A) 1.69 X 10*3/uL (0.90-5.00); MCH 30.6 pg (27.0-32.0); MCHC 32.2 g/dL (32.0-37.0); MCV 95.2 FL (80.0-97.0); Mean Platelet Volume 11.3 FL (9.5-12.2); Monocytes % (A) 10.6 %; NRBC Per 100 WBC 0 X 10*3/uL (0.00-0.01); Neutrophils # (A) 2.42 X 10*3/uL (1.80-7.70); Neutrophils % (A) 51.5 %; Platelet Count 293 X 10*3/uL (140-440); RBC 4.57 X 10*6/uL (4.10-5.20); RDW 13.4 % (11.5-14.5)
[2024-10-14 16:42] LABS: Hepatitis A Antibody IgM Nonreactive (Nonreactive); Hepatitis B Core IgM Nonreactive (Nonreactive); Hepatitis B Surface Antigen Nonreactive (Nonreactive); Hepatitis C IgG Antibody Nonreactive (Nonreactive)
[2024-10-14 17:09] LABS: ALT 17 U/L (8-44); AST 20 U/L (13-35); Albumin 4.1 g/dL (3.8-4.9); Albumin/Globulin Ratio 1.71 Ratio (1.60-3.17); Alkaline Phosphatase 71 U/L (41-126); BUN/Creat Ratio 15.89 Ratio (12.00-20.00); Blood Urea Nitrogen 14.3 mg/dL (9.0-27.0); Calcium 9.2 mg/dL (8.7-10.3); Carbon Dioxide 22.9 mmol/L (21.6-31.8); Chloride 106 mmol/L (96-109); Chol/HDL Ratio 3.02 Ratio; Globulin 2.4 g/dL (1.6-3.3); Glucose 96 mg/dL (70-110); LDL Cholesterol,Calculated 128.4 mg/dL (0.0-131.0); Potassium 4.4 mmol/L (3.5-5.5); Sodium 140 mmol/L (135-145); Total Bilirubin 0.4 mg/dL (0.3-1.2); Total Protein 6.5 g/dL (6.2-8.2); VLDL Calculation 11.34 mg/dL (5.00-40.00)
[2024-10-14 17:10] LABS: T4, Free (Free Thyroxine) 0.93 ng/dL (0.80-1.80)
[2024-10-14 18:40] LABS: HSV II IgG Interp Positive (Negative)
[2024-10-15 12:55] LABS: C. trachomatis,PCR Negative (Negative)
[2024-10-15 13:01] LABS: N. gonorrhoeae,PCR Negative (Negative)
== END | disposition home or self-care (01) ==
LOC: LABWHC1 10:09
PROVIDERS: ATTEND Student in an Organized Health Care Education/Training Program
DX: Z77.21 Contact with and (suspected) exposure to potentially hazardous body fluids (principal); E66.9 Obesity, unspecified
CPT/HCPCS: 36415; 80053; 80061; 80074; 83036; 84439; 84443; 85025; 86696; 86780; 87491; 87591